=== PATIENT | male | born 2005 | race Caucasian/White ===

== ENCOUNTER 2024-02-10 07:59 | Emergency (ER) | payer MEDICAID, OTHER, SELFPAY ==
[2024-02-10 08:07] VITALS: BP 131/58; PULSE 75; RESP 16; TEMP 36.8; O2SAT 96; BMI 31.0
--- NOTE | 2024-02-10 08:09 | DI.RAD.S_ITS ---
PROCEDURE: XR CHEST 1V INDICATIONS: Cough TECHNIQUE: One view of the chest was acquired. COMPARISON: None. FINDINGS: Surgical changes and devices: None. Lungs and pleura: Lungs are clear. No pleural effusions or pneumothorax. Mediastinum: Mediastinal contours appear normal. Heart size is normal. Bones and chest wall: No suspicious bony lesions. Overlying soft tissues appear unremarkable. IMPRESSION: No acute cardiopulmonary abnormality is seen. Dictated by: Kingsley Camarena M.D. on 02/10/2024 at 8:26 Approved by: Kingsley Camarena M.D. on 02/10/2024 at 8:27
--- NOTE | 2024-02-10 08:15 | ED.URI ---
HPI - URI/Sore Throat General Chief Complaint: Upper Respiratory Symptoms Stated Complaint: upper respiratory symptoms Time Seen by Provider: 02/10/24 08:08 Source: patient Mode of arrival: Ambulatory History of Present Illness HPI Narrative: Patient has history of childhood asthma/bronchitis. He does smoke. Patient here with family complaints 5 days of cough cold congestion sinus pressure. No dyspnea. No fever chills. He has missed work since of last week. No known sick contacts. Patient in no distress. Related Data Previous Rx's Medication Instructions Recorded albuterol sulfate 90 mcg/actuation 2 inhalation inhalation QID PRN 02/10/24 aerosol inhaler (Ventolin HFA) shortness of breath or wheezing #6.7 grams benzonatate 100 mg capsule 100 mg PO TID PRN cough #20 caps 02/10/24 Allergies Allergy/AdvReac Type Severity Reaction Status Date / Time No Known Drug Allergies Allergy Verified 12/29/20 08:07 Review of Systems Review of Systems Narrative: GENERAL: negative chills, fatigue, malaise, fever, sweats. HEENT: Positive sinus negative pain, ear pain, sore throat RESPIRATORY: negative dyspnea, positive cough CARDIOVASCULAR: negative chest pain, palpitations GASTROINTESTINAL: negative nausea, vomiting, abdominal pain : negative dysuria, frequency, hematuria MUSCULOSKELETAL: negative muscle or bony pain SKIN: negative rash, skin lesions NEUROLOGIC: negative weakness, numbness Patient History Social History Smoking Status: Current every day smoker Smoking Status: Current every day smoker Substance Use Type: does not use Exam Narrative Exam Narrative: GENERAL: in no distress, not toxic not dyspneic HEAD: Normocephalic. EYES: Pupils equal round ENT: Mucous membranes moist., bilateral nasal mucosa edema erythema/boggy, no pharyngeal erythema edema or exudates NECK: Trachea midline. CARDIOVASCULAR: Regular rate and rhythm RESPIRATORY: Clear to auscultation. Breath sounds equal bilaterally. No wheezes, rales, or rhonchi. GASTROINTESTINAL: Abdomen soft, non-tender EXTREMITIES: No gross deformities. BACK: No flank tenderness. NEURO: AOx4. SKIN: Warm and dry PSYCH: Not anxious, is cooperative Initial Vital Signs Initial Vital Signs: Vital Signs Temperature 98.3 F 02/10/24 08:07 Pulse Rate 75 02/10/24 08:07 Respiratory Rate 16 02/10/24 08:07 Blood Pressure 131/58 L 02/10/24 08:07 Pulse Oximetry 96 02/10/24 08:07 Oxygen Delivery Method Room Air 02/10/24 08:07 Course Orders Ordered: Discontinued Medications Benzonatate (Benzonatate 100 Mg Capsule) 100 mg PO NOW ONE Stop: 02/10/24 08:15 Last Admin: 02/10/24 08:20 Dose: 100 mg Documented By: BENSON Oxymetazoline HCl (Oxymetazoline Nasal [place] 30 Ml) 2 sprays NASAL NOW ONE Stop: 02/10/24 08:15 Last Admin: 02/10/24 08:20 Dose: 2 sprays Documented By: BENSON Vital Signs Vital signs: Vital Signs - 8 hr 02/10/24 08:07 Temperature 98.3 F Pulse Rate 75 Respiratory Rate 16 Blood Pressure 131/58 L Pulse Oximetry 96 Oxygen Delivery Method Room Air MDM - URI/Sore Throat Lab Data Labs: Lab Results 02/10/24 Range/Units 08:25 Chlamy pneumoniae PCR Not detected (Not Detect) Adenovirus (PCR) Not detected (Not Detect) B.parapertussis DNA PCR Not detected (Not Detecte) Coronavirus OC43 (PCR) Not detected (Not Detect) Coronavirus HKU1 (PCR) Not detected (Not Detect) Coronavirus 229E (PCR) Not detected (Not Detect) SARS-CoV-2 (PCR) Not detected (Not Detecte) Coronavirus NL63 (PCR) Not detected (Not Detect) Human Metapneumovir PCR Not detected (Not Detect) Influenza Type A (PCR) Not detected (Not Detect) Influenza Type B (PCR) Not detected (Not Detect) M. pneumoniae (PCR) Not detected (Not Detect) Parainfluenza 1 (PCR) Not detected (Not Detect) Parainfluenza 2 (PCR) Not detected (Not Detect) Parainfluenza 3 (PCR) Not detected (Not Detect) Parainfluenza 4 (PCR) Not detected (Not Detect) RSV (PCR) Not detected (Not Detect) Entero/Rhino (PCR) Not detected (Not Detect) Imaging Data Chest x-ray: Radiologist's Impression: [address] [address] XRay Report Signed Patient: Misti Hairston MR#: [id number] : 2005 Acct:[id number] Age/Sex: 18 / M Date of Service: 02/10/24 Loc: ED Accession Number: [id number] Procedure: XR chest 1V Ordering Provider: Yonatan Junior MD PROCEDURE: XR CHEST 1V INDICATIONS: Cough TECHNIQUE: One view of the chest was acquired. COMPARISON: None. FINDINGS: Surgical changes and devices: None. Lungs and pleura: Lungs are clear. No pleural effusions or pneumothorax. Mediastinum: Mediastinal contours appear normal. Heart size is normal. Bones and chest wall: No suspicious bony lesions. Overlying soft tissues appear unremarkable. IMPRESSION: No acute cardiopulmonary abnormality is seen. Dictated by: Kingsley Camarena M.D. on 02/10/2024 at 8:26 Approved by: Kingsley Camarena M.D. on 02/10/2024 at 8:27 [facility] Narrative Medical decision making narrative: Patient has history of childhood asthma/bronchitis. He does smoke. Patient here with family complaints 5 days of cough cold congestion sinus pressure. No dyspnea. No fever chills. He has missed work since of last week. No known sick contacts. Patient in no distress. After history and exam respiratory panel chest x-ray Tamar boss [facility] Medical records reviewed: No recent visit for this complaint Differential considered: Includes but not limited to COVID rhino virus adenovirus bronchitis pneumonia parainfluenza virus Lab Test results independently reviewed as above. Pertinent findings: Respiratory panel negative Imaging studies independently reviewed: Chest x-ray no acute finding Treatments: Afrin Tessalon Perles Re-evaluations: Patient feeling better at this time. Afrin spray did help his nose. Reviewed results with patient. Cough is controlled. Likely not infectious/bacterial source. No antibiotics are indicated. Likely allergy/seasonal allergies causing his symptoms. Work note provided. Return precautions reviewed. He desires discharge home Discussion: Appropriate for discharge home exam and laboratory studies and imaging studies and vital signs are reassuring. Patient likely has seasonal allergies. No fever here. No antibiotics are indicated. Work note provided. Prescriptions provided. Patient is pleased with treatment plan and follow up. He desires discharge home Diagnosis: Acute bronchitis Discharge Plan Departure Patient Disposition: Home Clinical Impression: Bronchitis Instructions: DI for Acute Bronchitis Activity Restrictions/Additional Instructions: Your exam and laboratory studies and x-ray imaging are reassuring. You likely have bronchitis. No antibiotics are indicated at this time. This can be caused by environmental or viral sources for bronchitis. Prescription medication has been provided for you, inhaler as well as cough medication. Work note has been provided for you as well. See family doctor in a week for re-evaluation. Prescriptions: New benzonatate 100 mg capsule 100 mg PO TID PRN (Reason: cough) Qty: 20 0RF albuterol sulfate [Ventolin HFA] 90 mcg/actuation HFA aerosol inhaler 2 inhalation INHALATION QID PRN (Reason: shortness of breath or wheezing) Qty: 6.7 0RF Referrals: [facility] [Outside] Miscellaneous,Doctor, MD [Primary Care Provider] - Stand Alone Forms: Patient Portal/API, Work Release Note
[2024-02-10] MEDS: OXYMETAZOLINE NASAL SPRAY 30 ML 2 SPRAYS NASAL (08:20)
[2024-02-10] MEDS: BENZONATATE 100 MG CAPSULE PO (08:20)
[2024-02-10 09:18] LABS: Adenovirus Not Detected (Not Detect); B. parapertussis Not Detected (Not Detecte); Bordetella pertussis Not Detected (Not Detect); Chlamydophila pneumoniae Not Detected (Not Detect); Coronavirus 229E Not Detected (Not Detect); Coronavirus HKU1 Not Detected (Not Detect); Coronavirus NL 63 Not Detected (Not Detect); Coronavirus OC43 Not Detected (Not Detect); Human Metapneumovirus Not Detected (Not Detect); Human Rhinovirus/Enterovirus Not Detected (Not Detect); Influenza A Not Detected (Not Detect); Influenza B Not Detected (Not Detect); Mycoplasma pneumoniae Not Detected (Not Detect); Parainfluenza Virus 1 Not Detected (Not Detect); Parainfluenza Virus 2 Not Detected (Not Detect); Parainfluenza Virus 3 Not Detected (Not Detect); Parainfluenza Virus 4 Not Detected (Not Detect); Respiratory Syncytial Virus Not Detected (Not Detect); SARS- CoV-2 Not Detected (Not Detecte)
[2024-02-10 09:57] VITALS: BP 130/76; PULSE 76; RESP 16; O2SAT 97
== END 2024-02-10 09:58 | disposition home or self-care (01) ==
PROVIDERS: Emergency Provider Emergency Medicine
DX: J20.9 Acute bronchitis, unspecified (principal); Z20.822 Contact with and (suspected) exposure to COVID-19
CPT/HCPCS: 71045; 87633; 99283

== ENCOUNTER 2024-08-13 09:34 | Emergency (ER) | payer OTHER, SELFPAY ==
[2024-08-13 09:46] VITALS: BP 143/81; PULSE 83; RESP 20; TEMP 38.4; O2SAT 97; BMI 33.1
--- NOTE | 2024-08-13 09:59 | ED_ITS ---
HPI - Headache General Chief Complaint: Headache Stated Complaint: flu like symptoms Time Seen by Provider: 08/13/24 09:39 Source: patient Mode of arrival: Ambulatory History of Present Illness HPI Narrative: 19-year-old otherwise healthy male. Had a roommate that recently was tested positive for influenza. Patient states that approximately 36 hours ago he started to develop a cough and congestion and headache and body aches and fever s. He was tried [id number] medications. Related Data Previous Rx's Medication Instructions Recorded albuterol sulfate 90 mcg/actuation 2 inhalation inhalation QID PRN 02/10/24 aerosol inhaler (Ventolin HFA) shortness of breath or wheezing #6.7 grams benzonatate 100 mg capsule 100 mg PO TID PRN cough #20 caps 02/10/24 oseltamivir 75 mg capsule (Tamiflu) 75 mg PO BID 5 days #10 caps 08/13/24 Allergies Allergy/AdvReac Type Severity Reaction Status Date / Time Penicillins Allergy Severe Anaphylaxis Verified 08/13/24 09:46 Review of Systems Review of Systems ROS Unobtainable: All systems reviewed & are unremarkable except as noted in HPI and below Patient History Social History Smoking Status: Current every day smoker Smoking Status: Current every day smoker Exam Initial Vital Signs Initial Vital Signs: Vital Signs Temperature 101.2 F H 08/13/24 09:46 Pulse Rate 83 08/13/24 09:46 Respiratory Rate 20 08/13/24 09:46 Blood Pressure 143/81 H 08/13/24 09:46 Pulse Oximetry 97 08/13/24 09:46 Oxygen Delivery Method Room Air 08/13/24 09:46 Const General: cooperative, comfortable and No ill appearing [facility] Head: normal to inspection and normocephalic Resp Effort & Inspection: normal respiratory effort Auscultation: clear to auscultation bilaterally Cardio Rate: regular rate Rhythm: regular rhythm Skin General: no rashes or lesions noted Neuro General: patient alert, patient awake, patient oriented x3 and moves all extremities Extrem General: normal to inspection Course Orders Ordered: ED Orders 08/13/24 10:01 Covid-19 + FLU A/B + RSV - PCR Stat Discontinued Medications Acetaminophen (Acetaminophen 325 Mg Tablet) 975 mg PO NOW ONE Stop: 12/19/24 10:26 Last Admin: 08/13/24 10:28 Dose: 975 mg Documented By: SANTOS Acetaminophen (Acetaminophen 650 Mg Supp) 650 mg ME NOW ONE Stop: 08/13/24 10:26 Last Admin: 08/13/24 10:30 Dose: Not Given Documented By: SANTOS Ibuprofen (Ibuprofen 400 Mg Tablet) 800 mg PO NOW ONE Stop: 08/13/24 10:26 Last Admin: 08/13/24 10:31 Dose: Not Given Documented By: SANTOS Vital Signs Vital signs: Vital Signs - 8 hr 08/13/24 09:46 Temperature 101.2 F H Pulse Rate 83 Respiratory Rate 20 Blood Pressure 143/81 H Pulse Oximetry 97 Oxygen Delivery Method Room Air MDM - Headache Lab Data Labs: Lab Results 08/13/24 Range/Units 10:01 SARS-CoV-2 (PCR) Negative (Negative) Influenza A (RT-PCR) Flu a positive H (NEGATIVE) Influenza B (RT-PCR) Flu b negative (NEGATIVE) RSV (PCR) Negative (Negative) MDM Narrative Medical decision making narrative: Well-appearing. Not hypoxic. Lungs are clear. Low suspicion for pneumonia. He was influenza positive. We discussed the risks and benefits of Tamiflu. He was had symptoms for less than 48 hours. He opted to take Tamiflu. No indication for admission to the hospital. He was given return precautions and follow-up instructions. He expressed understanding agreement with plan. Discharge Plan Departure Patient Disposition: Home Clinical Impression: Influenza A Instructions: Influenza Activity Restrictions/Additional Instructions: Be sure that you were increasing your fluid intake. You can take Tylenol and/or ibuprofen for any fevers. Return to the emergency department for new or worsening symptoms. Prescriptions: New oseltamivir [Tamiflu] 75 mg capsule 75 mg PO BID 5 Days Qty: 10 0RF No Action benzonatate 100 mg capsule 100 mg PO TID PRN (Reason: cough) Qty: 20 0RF albuterol sulfate [Ventolin HFA] 90 mcg/actuation HFA aerosol inhaler 2 inhalation INHALATION QID PRN (Reason: shortness of breath or wheezing) Qty: 6.7 0RF Referrals: Miscellaneous,Doctor, MD [Primary Care Provider] - Stand Alone Forms: Patient Portal/API/Survey
[2024-08-13] MEDS: ACETAMINOPHEN 325 MG TABLET 975 MG PO (10:28)
[2024-08-13 10:44] LABS: Influenza A - CEPHEID Flu A POSITIVE (NEGATIVE); Influenza B - CEPHEID Flu B NEGATIVE (NEGATIVE); Respiratory Syncytial Virus Negative (Negative)
[2024-08-13 10:45] LABS: COVID-19 CEPHEID 4-PLEX PCR Negative (Negative)
[2024-08-13 10:54] VITALS: BP 158/70; PULSE 98; O2SAT 97
== END 2024-08-13 10:54 | disposition home or self-care (01) ==
PROVIDERS: Emergency Provider Emergency Medicine
DX: J10.1 Influenza due to other identified influenza virus with other respiratory manifestations (principal); F17.200 Nicotine dependence, unspecified, uncomplicated
CPT/HCPCS: 87635; 87400 ×2; 87420; 0241U; 99283